=== PATIENT | female | born 1980 | race Caucasian/White ===

== ENCOUNTER 2021-09-30 17:33 | Emergency (ER) | payer BC ==
[~2021-09-30] VITALS: Ht 154.9 cm; Wt 69.1 kg
[2021-09-30 18:36] VITALS: BP 126/73; PULSE 95; TEMP 98.6
== END 2021-09-30 21:00 ==
LOC: COL.ER 17:33
DX: S42.001A Fracture of unspecified part of right clavicle, initial encounter for closed fracture (principal); V86.59XA Driver of other special all-terrain or other off-road motor vehicle injured in nontraffic accident, initial encounter; Y93.I9 Activity, other involving external motion